=== PATIENT | male | born 1980 ===

== ENCOUNTER 2017-10-26 18:15 | Emergency (ER) | payer BC, OTHER ==
[2017-10-26 18:15] VITALS: BMI 25.8
[2017-10-26 18:25] VITALS: TEMP 98.1
[2017-10-26] MEDS ORDERED: Sodium Chloride 0.9% 1,000 ML IV ONE (18:32)
--- NOTE | 2017-10-26 18:38 | C.PDOC ---
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 Patient reports the pain as constant and worst with movement and deep breaths. His friend states he got pale. He denies similar symptoms in the past. Patient denies any urinary symptoms, nausea, vomit or fever. No further medical complaints. PMD: None provided. Time Seen by Provider: 10/26/17 18:28 Chief Complaint (Nursing): Abdominal Pain History Per: Patient History/Exam Limitations: no limitations Onset/Duration Of Symptoms: Mins (x45 RECORDS ASSISTANT) Current Symptoms Are (Timing): Still Present Context: Food Associated Symptoms: denies: Fever, Nausea, Vomiting, Urinary Symptoms Exacerbating Factors: Movement, Deep Breaths Past Medical History Reviewed: Historical Data, Nursing Documentation, Vital Signs Vital Signs: Last Vital Signs Temp 98.1 F 10/26/17 18:22 Pulse 76 10/26/17 18:22 Resp 20 10/26/17 18:22 BP 155/84 H 10/26/17 18:22 Pulse Ox 99 10/26/17 19:41 - Medical History PMH: No Chronic Diseases Surgical History: No Surg Hx - [facility] Procedures IRRIGATION OF EAR (06/25/13) Family History: States: Unknown Family Hx - Social History Hx Tobacco Use: No Hx Alcohol Use: No Hx Substance Use: No - Immunization History Hx Tetanus Toxoid Vaccination: No Hx Influenza Vaccination: No Hx Pneumococcal Vaccination: No Review Of Systems Constitutional: Negative for: Fever Gastrointestinal: Positive for: Abdominal Pain (right lower). Negative for: Nausea, Vomiting Genitourinary: Negative for: Dysuria, Frequency, Incontinence Musculoskeletal: Positive for: Back Pain (flank pain) Physical Exam - Physical Exam Appears: No Acute Distress Skin: Normal Color, Warm, Dry Head: Atraumatic, Normacephalic Eye(s): bilateral: Normal Inspection, PERRL, EOMI Neck: Normal ROM Chest: Symmetrical Cardiovascular: Rhythm Regular Respiratory: Normal Breath Sounds, No Wheezing Gastrointestinal/Abdominal: Soft, Tenderness (RLQ) Back: CVA Tenderness (Right) Extremity: Normal ROM, No Deformity, No Swelling Neurological/Psych: Oriented x3 ED Course And Treatment - Laboratory Results Result Diagrams: 10/26/17 18:47 10/26/17 18:47 Lab Interpretation: Normal (Slight microhematuria) O2 Sat by Pulse Oximetry: 99 (RA) Pulse Ox Interpretation: Normal Reevaluation Time: 19:43 Reassessment Condition: Improved (After IV Toradol.) Medical Decision Making Medical Decision Making: Initial Impression: abdominal pain Initial Plan: --Abdomen & Pelvis w/o PO or IV cont [CT] --CMP --Lipase --CBC w/ differential --Toradol 30 mg IVP --Sodium Chloride 1,000 ml IV 1,000 mls/hr --Urinalysis --Reevaluation 19:35 Abdomen/Pelvis CT IMPRESSION: Minimally obstructing stone at the right UVJ, measuring 4 mm. Constipation is seen. No signs of bowel obstruction. The appendix appears normal. Disposition Counseled Patient/Family Regarding: Studies Performed, Diagnosis, Need For Followup, Rx Given - Disposition Referrals: [facility] [Outside] Disposition: HOME/ ROUTINE Disposition Time: 19:43 Condition: IMPROVED Additional Instructions: Encourage plenty of fluids. Strain all urine and observe for a small stone. Prescriptions: Ketorolac Tromethamine [Toradol] 10 mg PO QID PRN #20 tab PRN Reason: Pain, Severe (8-10) Ondansetron ODT [Zofran ODT] 1 odt PO QID PRN #10 odt PRN Reason: Nausea/Vomiting oxyCODONE/Acetaminophen [Percocet 5/325 mg Tab] 1 tab PO QID PRN #10 tab PRN Reason: Pain Instructions: Kidney Stones in Adults Forms: [facility] ([place]) - Clinical Impression Clinical Impression: Kidney stone on right side - Scribe Statement Robert Mariscal
[2017-10-26 18:50] LABS: BASO % 0.5 % (0.0-2.0); EOS # 0.2 K/uL (0.0-0.7); EOS % 2.6 % (0.0-4.0); HEMOGLOBIN 13.6 g/dL (12.0-18.0); LYMPH # 1.7 K/uL (1.0-4.3); MEAN CELL VOLUME 85.3 fL (80.0-94.0); MEAN CORPUSCULAR HEMOGLOBIN 28.9 pg (27.0-31.0); MEAN CORPUSCULAR HGB CONC 33.9 g/dL (33.0-37.0); MEAN PLATELET VOLUME 7.9 fL (7.2-11.7); MONO # 0.7 K/uL (0.0-0.8); MONO % 9.7 % (0.0-10.0); NEUT # 4.4 K/uL (1.8-7.0); NEUT % 63.2 % (50.0-75.0); NRBC % 0.1 % (0.0-2.0); RBC 4.7 Mil/uL (4.40-5.90); RED CELL DISTRIBUTION WIDTH 13.6 % (11.5-14.5); WHITE BLOOD COUNT 6.9 K/uL (4.8-10.8)
[2017-10-26] MEDS ORDERED: Sodium Chloride 0.9% 1,000 ML ONE (18:50)
[2017-10-26 18:54] LABS: URINE BILIRUBIN NEGATIVE (NEGATIVE); URINE BLOOD 1+ (NEGATIVE); URINE CLARITY Clear (Clear); URINE COLOR Yellow (YELLOW); URINE GLUCOSE (UA) NORMAL (Normal); URINE LEUKOCYTE ESTERASE NEG Leu/uL (Negative); URINE PROTEIN NEGATIVE (NEGATIVE)
[2017-10-26 19:05] LABS: ALB/GLOB RATIO 1.2 (1.0-2.1); ALBUMIN 4.3 g/dL (3.5-5.0); ALT/SGPT 60 U/L (21-72); AST/SGOT 27 U/L (17-59); BLOOD UREA NITROGEN 20 mg/dL (9-20); CALCIUM 8.4 mg/dl (8.6-10.4); LIPASE 59 U/L (23-300)
[2017-10-26 19:08] LABS: GFR AFRICAN-AMERICAN > 60; GFR NON-AFRICAN AMERICAN > 60
[2017-10-26 19:52] VITALS: BP 122/70; PULSE 74; RESP 18
[2017-10-26 20:31] VITALS: O2SAT 99
--- NOTE | 2017-10-27 08:01 | CT ---
PROCEDURE: CT Abdomen and Pelvis without intravenous contrast HISTORY: abd pain COMPARISON: None. TECHNIQUE: Helical CT of the abdomen and pelvis was performed without oral or intravenous contrast as per referring physician request.. Contrast Dose: None Radiation dose: Total exam DLP = 574.04 mGy-cm. This CT exam was performed using one or more of the following dose reduction techniques: Automated exposure control, adjustment of the mA and/or kV according to patient size, and/or use of iterative reconstruction technique. FINDINGS: LOWER THORAX: Unremarkable. LIVER: Unremarkable. No gross lesion or ductal dilatation. GALLBLADDER AND BILE DUCTS: Unremarkable. PANCREAS: Unremarkable. No gross lesion or ductal dilatation. SPLEEN: Unremarkable. ADRENALS: Unremarkable. No mass. KIDNEYS AND URETERS: No hydronephrosis or hydroureter is identified bilaterally although there is a 3.5 mm calcified in the distal right ureter a few cm proximal to the right ureterovesical junction. Although there is no perinephric reaction an element obstructive uropathy may be present on functional basis though no hydronephrosis appreciated this time. Clinically correlate further. No additional radiodense urolithiasis bilaterally. Urinary bladder is distended but otherwise unremarkable. VASCULATURE: Unremarkable. No aortic aneurysm. BOWEL: Unremarkable. No obstruction. No gross mural thickening. APPENDIX: Unremarkable. Normal appendix. PERITONEUM: Unremarkable. No free fluid. No free air. LYMPH NODES: Unremarkable. No enlarged lymph nodes. BLADDER: Unremarkable. REPRODUCTIVE: Unremarkable. BONES: No acute fracture. OTHER FINDINGS: None. IMPRESSION: A 3.5 mm calculus approximate to distal right ureter a few cm proximal to the right uterovesical junction. No definitive hydroureter or hydronephrosis results. Exam otherwise unremarkable though limited due to lack of contrast agents.
== END 2017-10-26 19:56 | disposition home or self-care (01) ==
LOC: C.ER 18:15
DX: N20.0 Calculus of kidney (principal)
CPT/HCPCS: 74176; 80053; 81001; 83690; 85025; 96361; 96374; 99284; J1885; J7040